=== PATIENT | male | born 1985 | race Caucasian/White ===

== ENCOUNTER 2023-04-18 09:33 | Emergency (ER) | payer SELFPAY ==
[2023-04-18 11:11] LABS: BASO % 0.4 % (0-2.0); EOS % 2.4 % (0-4.5); HEMATOCRIT 48.9 % (35.4-49); HEMOGLOBIN 16.8 GM/dL (11.7-16.9); LYMPH % 26.2 % (8-40); MCHC 34.3 g/dl (32.0-35.9); MEAN CELL VOLUME 90.2 fl (80-96); MEAN PLT VOLUME 9.5 fl (7.5-11.1); MONO % 10.7 % (3.8-10.2); NEUT % 60.3 % (42.8-82.8); PLATELET COUNT 159 10^3/uL (134-434); RBC 5.42 M/mm3 (4.00-5.60); RDW 13.1 % (11.9-15.9); WHITE BLOOD COUNT 8.2 K/mm3 (4.0-10.0)
[2023-04-18 11:32] LABS: POTASSIUM 4.9 mmol/L (3.5-5.1)
[2023-04-18 11:34] LABS: ALBUMIN 4.3 g/dl (3.4-5.0); BLOOD UREA NITROGEN 15.8 mg/dL (7-18); CALCIUM 10.2 mg/dL (8.5-10.1)
[2023-04-18 11:38] LABS: CREATININE 1.1 mg/dL (0.55-1.3)
[2023-04-18 11:39] LABS: BILIRUBIN,TOTAL 0.8 mg/dL (0.2-1)
== END 2023-04-18 14:59 | disposition home or self-care (01) ==
LOC: JER 09:33
DX: R10.12 Left upper quadrant pain (principal)
CPT/HCPCS: 36415; 74177-TC; 80053; 83690; 85025; 99285-25

== ENCOUNTER 2023-11-07 09:03 | Emergency (ER) | payer OTHER ==
[2023-11-07 09:10] VITALS: BP 129/82; PULSE 73; RESP 20; TEMP 97.6; BMI 21.9
[2023-11-07] MEDS ORDERED: LIDOCAINE 4% PATCH TP ONE (09:42)
[2023-11-07] MEDS ORDERED: ACETAMINOPHEN 500 MG TABLET (FP) ONE (09:42)
[2023-11-07] MEDS: LIDOCAINE 4% PATCH TP ONE (09:46)
[2023-11-07] MEDS: ACETAMINOPHEN 500 MG TABLET (FP) PO ONE (09:46)
[2023-11-07 10:21] LABS: PH,URINE 5.5 (5.0-8.0); URINE APPEARANCE CLEAR; URINE BILIRUBIN NEGATIVE (NEGATIVE); URINE COLOR YELLOW; URINE GLUCOSE (UA) NEGATIVE (NEGATIVE); URINE KETONE NEGATIVE (NEGATIVE); URINE LEUK ESTERASE NEGATIVE (NEGATIVE); URINE NITRITE NEGATIVE (NEGATIVE); URINE PROTEIN NEGATIVE (NEGATIVE); URINE UROBILINOGEN 0.2 mg/dL (0.2-1.0)
[2023-11-07] MEDS ORDERED: LIDOCAINE PATCH REMOVAL MC ONE (22:00)
== END 2023-11-07 11:11 | disposition home or self-care (01) ==
LOC: JERFT 09:03
DX: M54.50 Low back pain, unspecified (principal); R10.30 Lower abdominal pain, unspecified; R20.0 Anesthesia of skin; R20.2 Paresthesia of skin
CPT/HCPCS: 72100-TC-FY; 81003; 87086; 99284-25

== ENCOUNTER 2023-12-02 08:36 | Emergency (ER) | payer OTHER ==
[2023-12-02 08:43] VITALS: BP 138/82; PULSE 77; RESP 18; TEMP 97.6; BMI 22.6
[2023-12-02] MEDS ORDERED: diazePAM 5 MG TABLET ONE (10:17)
[2023-12-02] MEDS ORDERED: KETOROLAC TROMETHAMINE 30 MG/1 ML VIAL ONE (10:17)
[2023-12-02] MEDS ORDERED: LIDOCAINE 4% PATCH TP ONE (10:17)
[2023-12-02] MEDS: LIDOCAINE 5% TOPICAL PATCH TP ONE (10:26)
[2023-12-02] MEDS: KETOROLAC TROMETHAMINE 30 MG/1 ML VIAL IM ONE (10:26)
[2023-12-02] MEDS: diazePAM 5 MG TABLET PO ONE (10:27)
[2023-12-02] MEDS ORDERED: LIDOCAINE PATCH REMOVAL MC SCH (22:00)
== END 2023-12-02 12:04 | disposition home or self-care (01) ==
LOC: JERFT 08:36
PROC: 3E0133Z Introduction of Anti-inflammatory into Subcutaneous Tissue, Percutaneous Approach (ICD-10-PCS; principal; 2023-12-02)
DX: M62.838 Other muscle spasm (principal); M54.16 Radiculopathy, lumbar region; G89.29 Other chronic pain
CPT/HCPCS: 99284-25

== ENCOUNTER 2024-01-01 09:54 | Day surgery (SDC) | payer OTHER ==
[2024-01-01] MEDS ORDERED: ACETAMINOPHEN 500 MG TABLET (FP) PO PRN (10:05)
[2024-01-01 14:27] VITALS: BMI 22.6
[2024-01-01] MEDS ORDERED: LIDOCAINE HCL/PF 1% SDV 5ML VIAL ONE (16:14)
[2024-01-01] MEDS ORDERED: DEXAMETHASONE SOD PHOSPHATE 10 MG/1 ML VIAL ONE (16:15)
[2024-01-01] MEDS: LIDOCAINE 1% P/F 10 MG/ML VIAL INF ONE (16:28)
[2024-01-01] MEDS: IOHEXOL 180 MG/1 ML ML IJ ONE ×2 (16:29)
[2024-01-01] MEDS: DEXAMETHASONE SOD PHOSPHATE 10 MG/1 ML VIAL IVPUSH ONE ×2 (16:30)
[2024-01-01 16:42] VITALS: RESP 20
[2024-01-01 17:32] VITALS: BP 138/80; PULSE 72; TEMP 98
== END 2024-01-01 17:33 | disposition home or self-care (01) ==
LOC: JASU-SURG 09:54
PROVIDERS: ATTEND Pain Medicine Pain Medicine
PROC: 3E0R3BZ Introduction of Anesthetic Agent into Spinal Canal, Percutaneous Approach (ICD-10-PCS; 2024-01-01)
PROC: 3E0R33Z Introduction of Anti-inflammatory into Spinal Canal, Percutaneous Approach (ICD-10-PCS; principal; 2024-01-01 15:45)
DX: M54.16 Radiculopathy, lumbar region (principal)
CPT/HCPCS: 76000-TC-FY; J1100